=== PATIENT | female | born 1935 | race Caucasian/White ===

== ENCOUNTER 2018-06-03 13:49 | Emergency (ER) | payer MEDICARE, SELFPAY ==
[2018-06-03 14:06] VITALS: BP 160/79; PULSE 99; RESP 14; TEMP 36.8; O2SAT 96; BMI 19.7
--- NOTE | 2018-06-03 14:24 | DI.RAD.S_ITS ---
PROCEDURE: XR ACUTE ABDOMEN SERIES INDICATIONS: Abdominal pain TECHNIQUE: One view chest and two views of the abdomen were acquired. COMPARISON: None. FINDINGS: Surgical changes and devices: None. Chest: Lungs are clear. Heart size is mildly enlarged. No pleural effusions. No pneumoperitoneum. Abdomen: Bowel gas pattern is normal. Mild fecal stasis in the colon is seen. No suspicious calcifications. Visualized solid organ contours appear normal. Bones: No suspicious bony lesions. Moderate dextroscoliosis of lumbar spine centered at L2-3 level is seen. IMPRESSION: No evidence of bowel structure no gross free air. Mild constipation. No acute cardiopulmonary pathology. Dictated by: Chano Beyer M.D. on 06/03/2018 at 14:46 Approved by: Chano Beyer M.D. on 06/03/2018 at 14:46
--- NOTE | 2018-06-03 14:28 | ED_ITS ---
HPI - Abdominal Pain General Chief Complaint: Abdominal Pain Stated Complaint: pain right lower abdominal region Time Seen by Provider: 06/03/18 14:00 Source: patient Mode of arrival: ambulatory Limitations: no limitations History of Present Illness HPI narrative: 82-year-old nonsmoking female presents with a chief complaint of gradually worsening right lower quadrant pain for the past day and a half. She denies nausea, vomiting or fever or chills. She denies any history of the same. She does admit to no bowel movement for the past 5 days and has been taking pain medications for back pain. She denies dysuria, frequency or urgency. Her pain is worse with motion and palpation. She denies any history of surgery on her belly MD complaint: abdominal pain Onset (ago): day(s) Pain Consistency: constant Location: RLQ Severity: moderate Quality: cramping and aching Radiation: none Migration to: no migration Relieving factors: rest Exacerbating factors: movement Associated symptoms: denies other symptoms Related Data Previous Rx's Medication Instructions Recorded estradiol 0 VAGINAL SEE INSTRUCTIONS #6 tab 11/23/16 amoxicillin-pot clavulanate 1 tab PO BID #20 tab 06/03/18 [Augmentin] Allergies Allergy/AdvReac Type Severity Reaction Status Date / Time iodine [IODINE] Allergy Severe hives, Verified 06/03/18 14:05 sob, throat swelling Sulfa (Sulfonamide Allergy Mild Verified 06/03/18 14:05 Antibiotics) [SULFA (SULFONAMIDE ANTIBIOTICS)] Review of Systems Review of Systems All systems reviewed & are unremarkable except as noted in HPI and below Constitutional Denies chills, Denies fever(s), Denies lethargy and Denies weakness Eyes Denies change in vision, Denies eye discharge, Denies irritation and Denies loss of vision ENT Ears, Nose, Mouth, and Throat: Denies change in voice, Denies neck pain and Denies sore throat Cardiovascular Denies chest pain, Denies irregular heart rhythm, Denies lightheadedness, Denies palpitations, Denies dyspnea, Denies dyspnea on exertion and Denies orthopnea Respiratory Denies cough, Denies dyspnea, Denies dyspnea on exertion and Denies wheezing Gastrointestinal Gastrointestinal: Reports abdominal pain, Denies change in bowel habits, Reports constipation, Denies diarrhea, Denies nausea and Denies vomiting Genitourinary Denies hematuria, Denies flank pain, Denies urinary incontinence and Denies urinary urgency Musculoskeletal Denies neck pain Integumentary/Breasts Denies pruritus, Denies erythema, Denies rash and Denies wounds Neurologic Denies confusion, Denies loss of vision and Denies weakness Psychiatric Denies anxiety, Denies confusion, Denies depression, Denies homicidal ideation and Denies suicidal ideation Endocrine Denies palpitations Hematologic/Lymphatic Denies easy bruising Allergic/Immunologic Denies wheezing PFSH Social History Smoking Status: Never smoker Exam Narrative Exam Narrative: 82-year-old pleasant female obviously uncomfortable, rubbing her lower abdomen Initial Vital Signs Initial Vital Signs: Vital Signs Temperature 98.3 F 06/03/18 14:06 Pulse Rate 99 H 06/03/18 14:06 Respiratory Rate 14 06/03/18 14:06 Blood Pressure 160/79 H 06/03/18 14:06 Pulse Oximetry 96 06/03/18 14:06 Const General: cooperative, well developed and in distress Nutritional Appearance: well nourished Orientation: alert, awake, oriented x3 and not confused HENMT Head: normal to inspection Ears: hearing grossly normal bilaterally Nose: external nose normal Eyes General: appearance normal, both eyes and all related structures Eyelids: eyelids normal Conjunctivae: conjunctivae normal Sclera: sclerae normal Pupils: PERRL EOM: EOM intact bilaterally Neck Neck: normal visual inspection, trachea midline, No lymphadenopathy, No midline deformity and No JVD Lymphatic: No lymphedema Chest Chest: normal inspection of the chest Cardio Rate: regular rate Rhythm: regular rhythm Heart Sounds: no click, no gallops, no murmurs and no rubs Pulses: normal peripheral pulses GI Inspection: distended Palpation: soft, no hepatosplenomegaly, No guarding, No pulsatile mass and tender Auscultation: normal bowel sounds Back/Spine/Pelvis Back: No CVA tenderness Cervical Spine: cervical ROM normal and No pain with cervical ROM Thoracic/Lumbar Spine: thoracic and lumbar spine normal to inspection Skin General: no rashes or lesions noted, No jaundice and No petechiae Extrem General: full ROM, no clubbing, cyanosis or edema, no pedal edema and no calf tenderness Course Orders Ordered: ED Orders 06/03/18 14:24 XR acute abdomen series Stat 06/03/18 14:39 Complete Blood Count AUTO DIFF Stat Comprehensive Metabolic Panel Stat Lipase Stat 06/03/18 14:59 CT abdomen pelvis w con Stat 06/03/18 16:45 Urine Microscopic Stat Discontinued Medications Amoxicillin/Clavulanate Potassium (Augmentin 875-125 Mg) 1 tab PO NOW ONE Stop: 06/03/18 17:03 Last Admin: 06/03/18 17:07 Dose: 1 tab Diphenhydramine HCl (Benadryl) 25 mg IV NOW ONE Stop: 06/03/18 14:23 Last Admin: 06/03/18 14:59 Dose: 25 mg Sodium Chloride (Normal Saline 0.9%) 1,000 mls @ 150 mls/hr IV CONT IKER Last Admin: 06/03/18 14:53 Dose: 150 mls/hr Methylprednisolone (Solu-Medrol 125 Mg Vial) 125 mg IV NOW ONE Stop: 06/03/18 14:23 Last Admin: 06/03/18 14:59 Dose: 125 mg Vital Signs - 8 hr 06/03/18 14:06 06/03/18 15:05 06/03/18 16:00 Temperature 98.3 F Pulse Rate 99 H 81 83 Respiratory Rate 14 14 9 L Blood Pressure 160/79 H Blood Pressure [Left Arm] 137/70 130/66 Pulse Oximetry 96 98 97 06/03/18 17:00 06/03/18 17:28 Temperature Pulse Rate 86 86 Respiratory Rate 19 20 Blood Pressure 139/75 Blood Pressure [Left Arm] 139/75 Pulse Oximetry 97 97 MDM - Abdominal Pain Differential Diagnosis Differential diagnosis: Likely abdominal pain, acute appendicitis, calculus of kidney, constipation, diverticulitis, gastroenteritis, pancreatitis and small bowel obstruction Medical Records Attestation: I reviewed the patient's medical records. Lab Data Attestation: I reviewed the patient's lab results. Result diagrams: 06/03/18 14:39 06/03/18 14:39 Lab Results 06/03/18 06/03/18 06/03/18 Range/Units 14:39 14:39 16:45 WBC 11.8 H (4.5-11.0) X10^3/uL RBC 4.00 (4.0-5.2) X10^6/uL Hgb 12.5 (12.0-16.0) g/dL Hct 37.3 (36-46) % MCV 93.3 (80-100) fL MCH 31.3 (26-34) PG MCHC 33.5 (30-36) % RDW 13.3 (11.6-14.8) % Plt Count 301 (150-400) X10^3/uL Neut % (Auto) 76.5 H (50-75) % Lymph % (Auto) 14.6 L (25-40) % [place] % (Auto) 8.2 (3-14) % Eos % (Auto) 0.2 L (2-4) % Baso % (Auto) 0.5 (0-2) % Neut # (Auto) 9000 H (7222-2199) /uL Sodium 135 L (137-145) mmol/L Potassium 4.0 (3.4-5.1) mmol/L Chloride 96 L (98-107) mmol/L Carbon Dioxide 27 (22-32) mmol/L BUN 14 (7-17) mg/dL Creatinine 0.70 (0.52-1.04) mg/dL Estimated GFR > 60.0 (>60) mL/min BUN/Creatinine Ratio 20.0 (6-22) Glucose 99 (80-110) mg/dL Calcium 9.6 (8.4-10.2) mg/dL Total Bilirubin 0.6 (0.2-1.3) mg/dL AST 25 (14-36) IU/L ALT 27 (9-52) IU/L Alkaline Phosphatase 56 (38-126) U/L Total Protein 7.4 (6.3-8.2) g/dL Albumin 4.5 (3.5-5.0) g/dL Globulin 2.9 (1.7-4.1) g/dL Albumin/Globulin Ratio 1.6 (1.0-2.8) Lipase 92 (23-300) U/L Urine RBC None seen (0-5/HPF) Urine WBC 5-10/hpf H (0-5/HPF) Urine Bacteria Many (>30) H (None) Ur Culture Indicated? Specimen cultured Micro UA Comment Not Reportable Point of care testing: Urine Dip Bedside Urine Glucose Negative Bedside Urine Bilirubin - Negative Bedside Urine Ketone - Negative Urine Specific [place] 1.010 Bedside Urine Occult Blood - Negative Bedside Urine pH 6.0 Bedside Urine Protein - Negative Bedside Urine Urobilinogen - Negative Bedside Urine Nitrite + Positive Bedside Urine Leukocytes + [address] scan - abdomen: Radiologist's impression: [address] [address] [address] Scan Report Signed Patient: Solange Gerard BMR#: [id number] : 6Acct:[id number] Age/Sex: 82 / FDate of Service: 06/03/18 Loc: ED Accession Number: [id number] Procedure: CT abdomen pelvis w con Ordering Provider: Christofer Augustin D.O. PROCEDURE: CT ABDOMEN PELVIS W CON INDICATIONS: Severe RLQ pain, elevated WBC TECHNIQUE: After the administration of oral and intravenous contrast, 5 mm thick sections acquired from the diaphragms to the symphysis. 5 mm thick coronal and sagittal reformats were performed. For radiation dose reduction, the following was used: automated exposure control, adjustment of mA and/or kV according to patient size. COMPARISON: None. FINDINGS: Image quality: Excellent. ABDOMEN: Lung bases: Bibasilar scarring/atelectasis are seen. No pleural effusion or pneumothorax Heart size is normal. Solid organs: There is hepatomegaly. No discrete hepatic lesion is seen.. Gallbladder is within normal limits. Biliary system is non-dilated. Pancreas enhances normally. Spleen is normal in size and enhancement. No adrenal nodules. Kidneys are normal in size and enhancement, without hydronephrosis. Peritoneum and bowel: There is a small hiatal hernia. Diffuse gastric wall thickening and edema is noted a left upper quadrant abdomen. There is suggestion of diffuse small bowel wall thickening and edema. Fecal stasis throughout redundant colon is seen. No gross abnormal colonic wall thickening is seen. Appendix is not definitively identified. No secondary CT signs for acute appendicitis. No free fluid or free air. Nodes and vessels: No retroperitoneal or mesenteric adenopathy. Aorta and inferior vena cava are normal in caliber. Atherosclerotic calcifications are noted throughout abdominal aorta and bilateral iliac arteries. Miscellaneous: No ventral hernias. PELVIS: Genitourinary: Bladder wall thickness is normal. Miscellaneous: No inguinal hernias or adenopathy. Bones: No suspicious bony lesions. No vertebral body compression fractures. 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 IMPRESSION: 1. Finding is concerning for infectious or inflammatory gastroenteritis. Fecal stasis in the colon. Appendix is not definitively identified. No secondary CT signs for acute appendicitis. No free fluid or free air. 2. Hepatomegaly, no discrete hepatic lesion. 3. No renal stone or hydronephrosis. Dictated by: Chano Beyer M.D. on 06/03/2018 at 15:43 Approved by: Chano Beyer M.D. on 06/03/2018 at 15:51 MDM Narrative Medical decision making narrative: Patient has generalized, if not right lower quadrant pain on exam. She admits to decreased bowel movement in the aftermath of pain medication for her chronic back pain. She denies vomiting but has been a bit nauseated. She denies fever or chills. CT notes inflammatory versus infection and urine suggests a mild UTI. Augmentin selected as it has the potential to cover both infectious etiologies. Patient given return precautions. Discharge Plan Departure Patient Disposition: Home Clinical Impression: Gastroenteritis, Acute UTI Discharge Date/Time: 06/03/18 17:39 Interventions: ED Discharge Assessment Last Done: 06/03/18 17:28 Instructions: DI for Bacterial Gastroenteritis -- Adult, Gastroenteritis Diet Activity Restrictions/Additional Instructions: 1. Drink plenty of fluids with frequent small sips. 2. For the next 24 hours a clear liquid diet is advised. After that please employ a brat diet which would include bananas, rice, apples, toast. 3. Please take medications as directed. 4. Please follow-up with your doctor in the next 1-2 days. Call the office for an appointment. 5. Please return to the emergency Department for any worsening or persistent symptoms, such as increasing pain or fever. Prescriptions: New amoxicillin-pot clavulanate [Augmentin] 875-125 mg tablet 1 tab PO BID Qty: 20 RF: 0 No Action estradiol 0.5 MG tablet Vaginal SEE INSTRUCTIONS Qty: 6 RF: 3
[2018-06-03 14:47] LABS: Add Manual Diff / Slide Review NO; Basophils Percent Auto 0.5 % (0-2); Eosinophils Percent Auto 0.2 % (2-4); Hematocrit 37.3 % (36-46); Hemoglobin 12.5 g/dL (12.0-16.0); Lymphocytes Percent Auto 14.6 % (25-40); Mean Corpuscular HGB Conc 33.5 % (30-36); Mean Corpuscular Hemoglobin 31.3 PG (26-34); Mean Corpuscular Volume 93.3 fL (80-100); Monocytes Percent Auto 8.2 % (3-14); Neutrophils Absolute Auto 9000 /uL (3000-5900); Neutrophils Percent Auto 76.5 % (50-75); Platelet Count 301 X10^3/uL (150-400); Red Cell Distribution Width 13.3 % (11.6-14.8); White Blood Cell Count 11.8 X10^3/uL (4.5-11.0)
[2018-06-03] MEDS: SODIUM CHLORIDE 0.9% 1,000 ML 150 ML IV (14:53)
[2018-06-03 14:57] LABS: Alanine Aminotransferase 27 IU/L (9-52); Albumin 4.5 g/dL (3.5-5.0); Albumin Globulin Ratio 1.6 (1.0-2.8); Alkaline Phosphatase 56 U/L (38-126); Aspartate Aminotransferase 25 IU/L (14-36); Bilirubin Total 0.6 mg/dL (0.2-1.3); Blood Urea Nitrogen 14 mg/dL (7-17); Calcium 9.6 mg/dL (8.4-10.2); Carbon Dioxide 27 mmol/L (22-32); Chloride 96 mmol/L (98-107); Estimated Glomerular Filt Rate > 60.0 mL/min (>60); Globulin 2.9 g/dL (1.7-4.1); Glucose 99 mg/dL (80-110); HEMOLYSIS < 15 (0-50); Lipase 92 U/L (23-300); Sodium 135 mmol/L (137-145); Total Protein 7.4 g/dL (6.3-8.2)
[2018-06-03] MEDS: diphenhydrAMINE 50 MG/ML VIAL 25 MG IV (14:59)
[2018-06-03] MEDS: methylPREDNISolone 125 MG/2 ML VIAL IV (14:59)
--- NOTE | 2018-06-03 14:59 | DI.CT.S_ITS ---
PROCEDURE: CT ABDOMEN PELVIS W CON INDICATIONS: Severe RLQ pain, elevated WBC TECHNIQUE: After the administration of oral and intravenous contrast, 5 mm thick sections acquired from the diaphragms to the symphysis. 5 mm thick coronal and sagittal reformats were performed. For radiation dose reduction, the following was used: automated exposure control, adjustment of mA and/or kV according to patient size. COMPARISON: None. FINDINGS: Image quality: Excellent. ABDOMEN: Lung bases: Bibasilar scarring/atelectasis are seen. No pleural effusion or pneumothorax Heart size is normal. Solid organs: There is hepatomegaly. No discrete hepatic lesion is seen.. Gallbladder is within normal limits. Biliary system is non-dilated. Pancreas enhances normally. Spleen is normal in size and enhancement. No adrenal nodules. Kidneys are normal in size and enhancement, without hydronephrosis. Peritoneum and bowel: There is a small hiatal hernia. Diffuse gastric wall thickening and edema is noted a left upper quadrant abdomen. There is suggestion of diffuse small bowel wall thickening and edema. Fecal stasis throughout redundant colon is seen. No gross abnormal colonic wall thickening is seen. Appendix is not definitively identified. No secondary CT signs for acute appendicitis. No free fluid or free air. Nodes and vessels: No retroperitoneal or mesenteric adenopathy. Aorta and inferior vena cava are normal in caliber. Atherosclerotic calcifications are noted throughout abdominal aorta and bilateral iliac arteries. Miscellaneous: No ventral hernias. PELVIS: Genitourinary: Bladder wall thickness is normal. Miscellaneous: No inguinal hernias or adenopathy. Bones: No suspicious bony lesions. No vertebral body compression fractures. 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 IMPRESSION: 1. Finding is concerning for infectious or inflammatory gastroenteritis. Fecal stasis in the colon. Appendix is not definitively identified. No secondary CT signs for acute appendicitis. No free fluid or free air. 2. Hepatomegaly, no discrete hepatic lesion. 3. No renal stone or hydronephrosis. Dictated by: Chano Beyer M.D. on 06/03/2018 at 15:43 Approved by: Chano Beyer M.D. on 06/03/2018 at 15:51
[2018-06-03 15:05] VITALS: BP 137/70; PULSE 81; RESP 14; O2SAT 98
[2018-06-03 16:00] VITALS: BP 130/66; PULSE 83; RESP 9; O2SAT 97
[2018-06-03 16:55] LABS: RBC Urine None Seen (0-5/HPF)
[2018-06-03 17:00] VITALS: BP 139/75; PULSE 86; RESP 19; O2SAT 97
[2018-06-03] MEDS: AMOXICILLIN/CLAV 875/125 MG 1 TAB PO (17:07)
[2018-06-03 17:15] LABS: WBC Urine 5-10/HPF (0-5/HPF)
[2018-06-03 17:16] LABS: Bacteria Urine Many (>30); Culture Indicated Urine Specimen Cultured
[2018-06-03 17:28] VITALS: BP 139/75; PULSE 86; RESP 20; O2SAT 97
--- NOTE | 2018-06-08 11:08 | PC.NURSE ---
NS 1l started at rate of 150 at 1500 and ended at 1730 for 275cc in
== END 2018-06-03 17:39 | disposition home or self-care (01) ==
PROVIDERS: Emergency Provider Emergency Medicine; PCP Family Medicine
DX: K52.9 Noninfective gastroenteritis and colitis, unspecified (principal); N39.0 Urinary tract infection, site not specified
CPT/HCPCS: 36591; 74022; 74177; 80053; 81003; 81015; 83690; 85025; 87077; 87086; 87186; 96361; 96374; 96375; 99283; 99285; J1200; J2930; Q9967

== ENCOUNTER → 2020-11-20 11:03 | Outpatient (CLI) | payer MEDICARE, SELFPAY ==
[2020-11-20 18:46] LABS: Add Manual Diff / Slide Review NO; Basophils Absolute Auto 0 /uL (0-100); Basophils Percent Auto 0.9 % (0-2); Eosinophils Absolute Auto 100 /uL (0-450); Eosinophils Percent Auto 1.3 % (2-4); Hematocrit 37.9 % (36-46); Hemoglobin 12.8 g/dL (12.0-16.0); Lymphocytes Absolute Auto 1300 /uL (1100-4500); Lymphocytes Percent Auto 23.2 % (25-40); Mean Corpuscular HGB Conc 33.9 % (30-36); Mean Corpuscular Hemoglobin 31.8 PG (26-34); Mean Corpuscular Volume 93.9 fL (80-100); Monocytes Absolute Auto 700 /uL (0-900); Monocytes Percent Auto 12.7 % (3-14); Neutrophils Absolute Auto 3600 /uL (1500-7000); Neutrophils Percent Auto 61.9 % (50-75); Platelet Count 342 X10^3/uL (150-400); Red Blood Cell Count 4.04 X10^6/uL (4.0-5.2); Red Cell Distribution Width 13.8 % (11.6-14.8); White Blood Cell Count 5.8 X10^3/uL (4.5-11.0)
[2020-11-20 18:50] LABS: Alanine Aminotransferase 24 IU/L (<35); Albumin Globulin Ratio 1.4 (1.0-2.8); Alkaline Phosphatase 80 U/L (38-126); Aspartate Aminotransferase 37 IU/L (14-36); BUN Creatinine Ratio 20.8 (6-22); Bilirubin Total 0.4 mg/dL (0.2-1.3); Blood Urea Nitrogen 15 mg/dL (7-17); Calcium 9.3 mg/dL (8.4-10.2); Carbon Dioxide 29 mmol/L (22-32); Chloride 93 mmol/L (98-107); Estimated Glomerular Filt Rate > 60.0 mL/min (>60); Globulin 2.8 g/dL (1.7-4.1); Glucose 96 mg/dL (80-110); HEMOLYSIS < 15 (0-50); Potassium 4.2 mmol/L (3.4-5.1); Sodium 128 mmol/L (137-145); Total Protein 6.8 g/dL (6.3-8.2)
== END ==
PROVIDERS: PCP Family Medicine; Visit Provider Family Medicine
DX: E87.1 Hypo-osmolality and hyponatremia (principal); I10 Essential (primary) hypertension; G47.33 Obstructive sleep apnea (adult) (pediatric); M35.3 Polymyalgia rheumatica
CPT/HCPCS: 80053; 85025